=== PATIENT | female | born 1985 | race Hispanic/Latino ===

== ENCOUNTER 2019-06-16 13:45 | Emergency (ER) | payer OTHER ==
[2019-06-16] MEDS ORDERED: DiphenhydrAMINE HCL 50 MG/ML VIAL ONE ×2 (13:50→15:24)
[2019-06-16] MEDS ORDERED: LORAZEPAM 2 MG/ML 1 ML VIAL ONE (14:37)
[2019-06-16] MEDS ORDERED: DIPHENHYDRAMINE HCL 25 MG CAPSULE ONE (15:24)
== END 2019-06-16 16:00 | disposition home or self-care (01) ==
LOC: EDH 13:45
DX: S01.512A Laceration without foreign body of oral cavity, initial encounter (principal); G24.02 Drug induced acute dystonia; F41.9 Anxiety disorder, unspecified; F31.9 Bipolar disorder, unspecified; Z72.0 Tobacco use; X58.XXXA Exposure to other specified factors, initial encounter; Y93.89 Activity, other specified; Y92.488 Other paved roadways as the place of occurrence of the external cause; Y99.8 Other external cause status
CPT/HCPCS: 96374; 96375; 96376; 99284; J1200 ×2; J2060; Q0163